=== PATIENT | female | born 1995 | race Caucasian/White ===

== ENCOUNTER 2022-04-29 08:00 | Outpatient (RCR) | payer BC, SELFPAY ==
--- NOTE | 2022-04-29 09:05 | BH.SGPN.GN ---
Behaviors/Verbalizations/Mental Status: []Pt alert and oriented, casually dressed and groomed. Eye contact fair. Motor activity restless. Speech within normal limits. Affect constricted, mood anxious. Thoughts linear, logical, no signs of hallucinations or delusions. Reviewed pt?s symptom tracker, no risk for suicidal ideation, plan, or intent as of 04/29/22 Client Response/Progress/Benefit: [] Pt's first day of IOP tx, attentive and engaged. Pt reports feeling anxious this morning and pt talked about what brought pt to IOP. Pt shared her anxiety is crippling and she feels it constantly. Pt reported she wants to learn how to manage her physical symptoms and negative thinking. Pt receptive to feedback and support from peers which pt appeared to benefit from. Pt will continue IOP tx to prevent decompensation, improve daily functioning, and gain healthy coping skills. Narrative Note: []
--- NOTE | 2022-04-29 10:10 | BH.SGPN.GN ---
Behaviors/Verbalizations/Mental Status: [] Eye contact is good. Motor activity is appropriate. Appearance is casual. Speech is Appropriate. Mood is anxious. Affect is congruent. Thoughts are linear and logical. No evidence of psychosis. Client Response/Progress/Benefit: [] Pt was an active participant in group discussion. Attentive AEB by note taking during psychoeducation on the types cognitive distortions, the CBT triangle, and automatic thoughts. This group was very information heavy as group was introduced to the various cognitive distortions however pt did participate in interactive discussions with peers in which they gave examples of certain cognitive distortions. Benefited from increased awareness and education on cognitive distortions and how they impact mental health. Will continue in IOP to maintain safety, improve functioning, and increase healthy coping skills. Narrative Note: []
--- NOTE | 2022-04-29 11:10 | BH.SGPN.GN ---
Behaviors/Verbalizations/Mental Status: []Eye contact is fair. Motor activity is appropriate. Appearance is casual. Speech is Appropriate. Mood is anxious. Affect is constricted. Thoughts are linear and logical. No evidence of psychosis. Client Response/Progress/Benefit: []Pt was an active participant in the group activity which involved working with peers to answer questions related to psychoeducation on cognitive distortions. Questions were posed in the fashion of Jeopardy and the categories included; Identifying the Cognitive Distortion, Ways to reframe cognitive distortions, Examples of cognitive distortions, and other areas related to cognitive distortions. This was an engaging way to help reinforce psychoeducation and to help client retain the information through examples and practicing. Pt was engaged in the game and with peers on collaborating to determine the answers. Client stated able to connect how distortions have kept her stuck and from trying new things. Benefited from rehearsing ways to challenge/reframe cognitive distortions and by gaining increased insight into examples/definitions of 10 most common cognitive distortions. Will continue in IOP to decrease anxiety, improve confidence, and prevent decompensation.
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
--- NOTE | 2022-05-01 10:00 | BH.SGPN.GN ---
Behaviors/Verbalizations/Mental Status: []Pt alert and oriented, casually dressed and groomed. Eye contact good. Motor activity appropriate. Speech within normal limits. Affect constricted, mood anxious. Thoughts linear, logical, no signs of hallucinations or delusions. Client Response/Progress/Benefit: []Pt responded well to session AEB sharing when prompted and listening attentively to others. Pt participated in group discussion defining boundaries and why having healthy boundaries is important. Pt shared she struggles with setting boundaries because she fears disappointing others. Pt appeared to connect to psychoeducation on types of boundaries, including physical, emotional, and intellectual. Pt listened attentively and nodding throughout discussion in which group members shared personal examples of different types of boundaries. Pt appeared to benefit from increased knowledge of the types of boundaries and increased self-awareness of personal boundaries. Will continue IOP tx prevent decompensation, improve overall functioning, and increase self-confidence. Narrative Note: []
[2022-05-01 10:01] VITALS: BP 122/86; PULSE 63
--- NOTE | 2022-05-01 11:31 | BH.MTP_ITS ---
Master Treatment Plan - Patient Information Program Physician:: Dr. Judie Espinosa Primary Therapist:: Courtney POWERS - Psychiatric Diagnoses Psychiatric Diagnoses:: Major depressive disorder, recurrent, severe without psychosis F 33.2; Obsessive-compulsive disorder; Generalized anxiety disorder; Emetophobia; Tourette's syndrome; Marijuana use disorder Diagnosis Code(s):: F 33.2 - Estimated LOS Estimated LOS (in weeks):: 6 Problem/Goal #1 - Problem/Goal #1 Stated Goal:: Pt will reduce overall frequency and intensity of anxiety, OCD, and ruminations so that daily functioning is not impaired Description of Barriers: Due to pt's anxiety, she has a hard time keeping jobs and has had 10 jobs since she graduated high school. Pt reports avoidance, ruminations, and negative thinking patterns that reinforce anxiety and depression. History of self-harm and reports daily marijuana use. Functional Impact: Pt is a 26-year-old female with a history of depression, OCD, and anxiety. Pt was referred to [facility] by her outpatient providers due to worsening symptoms and suicidal ideations. At admission, pt reports she is scared of everything and she is anxiety 17/02. Pt's symptoms are currently impacting her ability to maintain employment and concentrate. Pt reports feeling worried constantly that she will get fired and that she asks too many questions. Pt also endorsed a depressed mood, worthlessness, lack of motivation, crying spells, and lack of energy. Pt's symptoms are also impacting her relationships and quality of life. Goal Relevant Strengths/Supports: Pt reports her family is support, she has outpatient counseling and psychiatry, and pt has awareness of coping skills. - Objectives Objective #1 Stated Objective: Pt will identify 2-3 anxiety and OCD triggers and 2 coping ski lls to use to manage anxiety as shown by reducing DSM-5 scores for anxiety and OCD. Interventions: Through group and individual sessions, pt will gain awareness of anxiety and OCD triggers and learn numerous techniques to manage anxiety and OCD symptoms. Therapist will teach mindfulness and other calming techniques to manage symptoms and increase distress tolerance skills. Therapist will also help pt utilize mindfulness skills to sit with the uncomfortable to increase confidence in managing triggers. Discharge Criteria: Pt will have met this goal when pt can identify at least 2 triggers and 2 ways to cope with anxiety and show a reduction of DSM-5 scores for anxiety and OCD. Target Date: 06/10/22 Review Date: 05/20/22 Status: open Objective #2 Stated Objective: Pt will improve ability to cope with OCD symptoms and Emetophobia and reduce avoidance by setting 1-2 small exposure goals each week. Interventions: Through group and individual therapy, pt will gain skills on distress tolerance and sitting with the uncomfortable. Therapist will help pt set small, realistic exposure goals each week. Therapist will have pt practice these goals both in session and at home. Therapist will provide psychoeducation on why this is important to reducing anxiety, OCD, and phobias. Therapist will also provide psychoeducation on intrusive thinking and reducing safety behaviors. Discharge Criteria: Pt will have accomplished this goal when pt can report accomplishing at least 1 exposure goal per week and can report reduced avoidance overall. Target Date: 06/10/22 Review Date: 05/20/22 Status: open Problem/Goal #2 - Problem/Goal #2 Stated Goal:: Pt will reduce depressive symptoms, lack of motivation, worthlessness, and passive thoughts of due to major depressive disorder. Description of Barriers: Due to pt's anxiety, she has a hard time keeping jobs and has had 10 jobs since she graduated high school. Pt reports avoidance, ruminations, and negative thinking patterns that reinforce anxiety and depression. History of self-harm and reports daily marijuana use. Functional Impact: Pt is a 26-year-old female with a history of depression, OCD, and anxiety. Pt was referred to [facility] by her outpatient providers due to worsening symptoms and suicidal ideations. At admission, pt reports she is scared of everything and she is anxiety 17/02. Pt's symptoms are currently impacting her ability to maintain employment and concentrate. Pt reports feeling worried constantly that she will get fired and that she asks too many questions. Pt also endorsed a depressed mood, worthlessness, lack of motivation, crying spells, and lack of energy. Pt's symptoms are also impacting her relationships and quality of life. Goal Relevant Strengths/Supports: Pt reports her family is support, she has outpatient counseling and psychiatry, and pt has awareness of coping skills. - Objectives Objective #1 Stated Objective: Pt will learn and utilize 2-3 healthy coping strategies to better manage depressive symptoms and reduce DSM-5 symptoms for depression. Interventions: Through group and individual sessions, therapist will help pt identify triggers and warning signs of depression and emotional dysregulation including emotional, physical, and behavioral changes. Therapist will teach pt various coping skills to manage her symptoms. Therapist will use cognitive restructuring techniques and help pt gain awareness of negative thoughts that reinforce depressive cycles. Therapist will help pt incorporate mindfulness and emotional regulation skills when dealing with difficult situations. Discharge Criteria: Pt will have met this goal when she can report learning and using at least 2 coping skills to manage depressive symptoms and her DSM-5 scores for depression have decreased. Target Date: 06/10/22 Review Date: 05/20/22 Status: open Objective #2 Stated Objective: Pt will identify at least 2-3 negative self-talk messages used to reinforce depression and guilt and replace thoughts with positive, realistic messages Interventions: therapist will help pt identify distorted, negative beliefs about self and replace with more realistic, affirmative messages. Therapist will use CBT to help pt increase insight to the connection between thoughts, emotions, and behaviors. Therapist will encourage pt to practice thought challenging. Discharge Criteria: Pt will have achieved this goal when can verbalize at least 2 negative self-talk messages and effectively replace those thoughts with affirmative, realistic messages. Target Date: 06/10/22 Review Date: 05/20/22 Status: open
--- NOTE | 2022-05-01 11:31 | BH.MDN ---
Multi-Disciplinary Note - Note 30-min Individual Time Started:: 11:10 Date: 05/01/22 Purpose of session/treatment goals addressed:: To gather information on pt's current stressors, symptoms, triggers, and tx goals. Another goal was to build rapport and provide emotional support. Eye Contact:: Good Motor Activity:: Restless Appearance:: Casual Speech:: Appropriate Mood:: Anxious Affect:: Congruent Thoughts:: Linear, Logical, No evidence of hallucinations/delusions noted Staff Interventions:: rapport building, strengths perspective, treatment planning Client Response:: Pt responded well to session, open to meeting with therapist. Pt reports group has gone well so far and pt feels comfortable in the program. Pt shared her anxiety has almost prevented her from coming both days this week, but she was able to use opposite action. Pt is in outpatient treatment through [id number] and finds the services helpful. Pt reports she finds grounding skills helpful when pt zones out and pt is open to incorporating these into sessions. Pt's goal is to get my anxiety under control. Pt has struggled with anxiety most of her life, but it has significantly worsened over the past few months. Pt is unsure what triggered the increase in anxiety. Pt reflected on how her anxiety has led to avoidance, shutting down, and leaving jobs. Risks/Concerns:: Pt denies any active SI, plan, or intent to this therapist. Does admit to having thoughts of not caring if she . Progress Toward Goals/Plan:: Pt's first week of IOP tx and responding well so far. Pt reports feeling stressed about the financial component due to the long drive, but pt can commit to two days a week. Pt endorses severe, crippling anxiety per her report. Pt states her anxiety prevents her from functioning at home and work. Pt reports having 24/7 anxiety with ruminations and fears. Pt will continue IOP tx to prevent decompensation, improve overall functioning, and gain healthy coping skills. Time Stopped:: 11:26
--- NOTE | 2022-05-01 11:31 | BH.PSA ---
Source of Information - Presenting Problems/Circumstances Problems, Referral Source, Mental Status, Client: Pt is a 26-year-old female with a history of depression, OCD, and anxiety. Pt was referred to [facility] by her outpatient providers due to worsening symptoms and suicidal ideations. At admission, pt reports she is scared of everything and she is anxiety 17/02. Pt's symptoms are currently impacting her ability to maintain employment and concentrate. Pt reports feeling worried constantly that she will get fired and that she asks too many questions. Pt also endorsed a depressed mood, worthlessness, lack of motivation, crying spells, and lack of energy. Pt's symptoms are also impacting her relationships and quality of life. Psychiatric Presentation - Psych Issues & Need for Admission Psychiatric Issues:: Major depressive disorder, recurrent, severe without psychosis F 33.2; Obsessive-compulsive disorder; Generalized anxiety disorder; Emetophobia; Tourette's syndrome; Marijuana use disorder Past Psychiatric History - Treatment Hx Treatment History: pt has history of one psychiatric admission in 2019 for suicidal gesture where she pulled a knife on herself in front of her mother and she was admitted to [facility] at that time. No suicide attempts ever. She was diagnosed with Tourette's and OCD in recent years and she states that she clears her throat, hiccups and has some jerking tics at times. Pt did the IOP program at [facility] after her admission in 2019 and found this somewhat helpful. She has a history of cutting on her wrists and legs but did not require any stitches and she has not done this since 2019. Past medications include gabapentin, Cymbalta, BuSpar, Zoloft and Wellbutrin which all gave her significant side effects. Pt currently has outpatient counseling and psychiatry. First hospitalization:: 2018 [facility] Most recent hospitalization:: 2018 [facility] Medication Trials:: Yes ECT Therapy:: No Age of first mental health symptoms: Pt's phobia of vomiting started when pt was 8 years old. Pt reports feeling anxiety since elementary school and it has worsened in recent years. Describe (age, circumstance, etc) any past hospitalizations: See treatment hisotry Current providers for mental health treatment (counselor, psychiatrist, leather case finisher, etc.): Kay Kearns for counseling and Mehnaz Peace for medication management. Both providers are at [place] [id number] Development & Family of Origin - Childhood Significant Childhood Events: Pt describes her childhood as okay due to school being difficult for pt with her phobia of vomiting. Pt shared her parents are loving and denies any abuse in the household growing up. - Family Who currently lives in your home?: Pt lives with her family which includes her parents and her grandmother and who is always live there and they get along pretty well. Describe family composition:: Pt's parents are alive and both in their 50s. Pt is close with her parents, but closer with her mother. Pt has one brother who is two years older and they are sort of close. Pt has never been and has no children. Pt is currently not in a relationship. - Family History Family Hx of Psychiatric or AOD Problems: Pt has a paternal grandmother who is bipolar and had anxiety. Maternal grandmother had depression. No suicides in the family. No substance issues in the family. Ethnicity - Culture Do you identify yourself with any particular cultural, ethnic background, or community?: No - Sexuality Sexual Orientation: Bisexual Mental Status - Memory Recent Memory: Good Remote Memory: Good - Eye Contact Eye Contact: Fair - Speech Speech: Articulate - Thought Process Thought Process: Ruminations Insight: Fair Judgment: Fair Behavior: Anxious - Orientation Orientation: Time, Person, Place, Situation - Appearance Appearance: Appropriate - Mood Mood: Anxious - Affect Affect: Alert Suicide Assessment - Suicidal Ideation Have you ever felt like hurting yourself?: Yes Please explain:: Pt has a history of self-harm via cutting her arms and legs, but pt has not cut since 2019. Pt admits to passive suicidal ideations that occur occasionally, but denies any active SI, plan, or intent. No history of suicide attempts. Were you using ETOH/drugs at the time?: No Suicidal Intentional Rating Scale (SIRS): Current suicidal thoughts/No plan/Contracts for safety - passive suicidal ideations, no active SI, plan, or intent. Physician Notification: If Active suicidal thoughts/Will not contract for safety is checked, contact physician and document in the Physician Notification section below. Violent Behavior/Abuse History - Homicidal Ideation Do you have any homicidal thoughts? If so, explain:: No Is there a known potential victim? If yes, who:: No - Abuse Have you ever been abused?: No - Life Events Are there any other significant life events?: Financial loss, Hardships Describe significant life events: Pt report difficulty maintaining employment which causes negative thinking and financial stress for pt. - Safety Do you ever feel threatened in your home? If yes, describe:: No Substance Use - Substance Substance Use Type: Hallucinogens - Pt has used LSD and mushrooms in the past but only twice., Marijuana, Tobacco - Specific Drugs What specific drugs have you used?: She smokes marijuana 3 times daily with a medical card and first used it at age 22. She smokes cigarettes less than half a pack a day for 5 years. No vaping. No alcohol use. No other drugs except tried mushrooms and LSD twice. No rehab ever Education & Occupational Histo - Education What is your level of education?: Some College - graduated high school and tried college several times but it did not work out. She did obtain a certificate in office management from a college. Do you have any learning disabilities?: No - Occupation List any current or past employment:: She has had over 10 job since high school graduation and her jobs only last 3 to 4 months and then her anxiety increases and she quits the job. Pt is currently employed at [employer], but was given two weeks off of work to focus on her mental health. Service - Service Have you ever been in the ?: No Legal History - Records Have you had any past legal charges?: No Do you have any current legal charges?: No Have you ever been incarcerated? If yes, describe:: No - Court Orders Have you had any past court orders for psychiatric treatment?: No Do you have a present court order for psychiatric treatment?: No Problem Checklist - Current Problem Areas Problem List: Nutritional/Eating pattern changes, Pain management - Fibromyalgia, osteoarthritis, and degenerative disc disease in her back and neck, Depressed mood/sad, Anxiety - with intrusive thinking, phobia of vomiting, and avoidance., Inattention, Impulsivity, Substance use, Sleep problems, Additional psychosocial stressors Discharge Planning Needs - Anticipated Follow-Up [facility] Center (Name/Phone Number):: [phone] Private Therapist/Psychiatrist:: Kay Kearns (therapist) and Mehnaz Peace (psych) Grocery Stock Clerk's Assessment - Client's Needs What are the client's goals?: reduce intensity of anxiety and improve daily functioning. What are the client's strengths?: Pt reports her family is support, she has outpatient counseling and psychiatry, and pt has awareness of coping skills. Diagnoses - Diagnoses Diagnosis #1:: Major depressive disorder, recurrent, severe without psychosis F 33.2 Diagnosis #2:: Obsessive-compulsive disorder Diagnosis #3:: Generalized anxiety disorder Diagnosis #4:: Emetophobia Interpretive Summary - Interpretive Summary Interpretive Summary: pt is a 26-year-old single female with a history of depression, anxiety, OCD and Tourette's disorder who was referred to [facility] by her outpatient psychiatrist for worsening symptoms of depression, anxiety and suicidal ideation. She currently lives with her family which includes her parents and her grandmother and is always live there and they get along pretty well. She has been off work for 2 weeks and she works part-time at [employer] for the past few months only and she does not like her job. Pt reports the fast-paced environment is too anxiety producing. For primary support she has her mother or no one? but pt does talk with her mother. Pt states that she worries all of the time about everything. Pt states that for the last few years she has become increasingly fearful and worried. She has found it more difficult to function at work and at home. Her biggest stress currently is that she has to return to work in 3 days and she is does not know if she will be able to do it. She also has a fear of vomiting that she has had since age 8 which has impacted what she eats and her functioning socially for many years. Pt also has a medical marijuana card and uses medical marijuana 3 times a day. She denies any caffeine use. She endorses feeling depressed and having crying episodes. She endorses hopelessness, worthlessness, guilt and low motivation. Pt thinks very negatively about herself and feels as a rule that ?people won?t like me.? Pt endorses anhedonia and has a low energy level and is tired all of the time. Concentration is decreased. She sleeps about 6 hours a night and she wakes up sometimes during the night and she does take naps during the day. She has a history of self-harm by cutting but she has not done this since 2019. She is a worrier and worries constantly and negatively ruminates. She has not had a panic attack for 3 months and feels the medications have helped lessen these. She has intrusive thoughts about a lot of bad things that could happen to her and others such as her having a seizure and worries about these thoughts and has some checking rituals. She denies eating disorder, trauma or PTSD or seizure or head trauma. She admits to passive thoughts that she would not care if she . She admits to passive suicidal ideation which occurs 2-3 times a week but she denies any active suicidal ideation and denies plan for suicide. She also denies homicidal ideation, hallucinations or delusions or martín. Denies abuse during childhood. Family history of anxiety, depression, and bipolar disorder. Pt denies family history of substance abuse. Treatment Plan Recommendations - Recommendations Guidelines: Special needs identified to be included in the development of an individualized treatment plan regarding past psychiatric history and treatment, developmental events, family relationships/events/culture, past and/or current educational, occupational, social, and residential experience, and legal status. Recommendations:: Pt will start IOP as the structure, support, education and group therapy will hopefully prevent worsening of pt's symptoms which could require hospitalization. She felt safe during the interview and if it anytime she does not feel safe she will let us know or go to the emergency room. The risk, options, possible complications and side effects of the medications were discussed between pt and Dr. Espinosa and pt understands and accepts these. Laboratory had not been done since a year ago and the pt agreed to have a TSH, vitamin D and CBC checked (heavy menstrual periods for CBC). She will continue to follow-up with her outpatient providers. Pt can benefit from ERP therapy for her emetaphobia, OCD, and severe anxiety. Pt is receptive to learning about intrusive thinking to help manage her OCD.
--- NOTE | 2022-05-01 12:57 | PCM.BH.PSYEV ---
Psychiatric Evaluation Initial Evaluation Initial Evaluation: History of Present Illness: [] The patient is a 26-year-old single female with a history of depression, anxiety, OCD and Tourette's disorder who was referred to the [facility] behavioral health IOP program by her outpatient psychiatrist for worsening symptoms of depression, anxiety and suicidal ideation. She currently lives with her family which includes her parents and her grandmother and is always live there and they get along pretty well. 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 For primary support she has her mother or no one. The patient states that she worries all of the time about everything. The patient states that for the last few years she has become increasingly fearful and worried. She has found it more difficult to function at work and at home. Her biggest stress currently is that she has to return to work in 3 days and she is does not know if she will be able to do it. She also has a fear of vomiting that she has had since age 8 which has impacted what she eats and her functioning socially for many years. The patient also has a medical marijuana card and uses medical marijuana 3 times a day. She denies any caffeine use. She endorses feeling depressed and having crying episodes. She endorses hopelessness, worthlessness, guilt and low motivation. She is anhedonic and has a low energy level and is tired all of the time. Concentration is decreased. She sleeps about 6 hours a night and she wakes up sometimes during the night but she does take naps during the day. She has a history of self-harm by cutting but she has not done this since 2019. She is a worrier and worries constantly and negatively ruminates. She has not had a panic attack since 3 months ago and feels the medications have helped lessen these. She has intrusive thoughts about a lot of bad things that could happen to her and others such as her having a seizure and worries about these thoughts and has some checking rituals. She denies eating disorder, trauma or PTSD or seizure or head trauma. She admits to passive thoughts that she would not care if she . She admits to passive suicidal ideation which occurs 2-3 times a week but she denies any active suicidal ideation and denies plan for suicide. She also denies homicidal ideation, hallucinations or delusions or martín. She does feel that people will not like her and and do not like her as a rule. Current Psychiatric Medications: [] Abilify 2 mg p.o. daily (x6 months, had side effects on 5 mg); Lexapro 20 mg p.o. daily (x6 months). Past Psychiatric History: [] 1 psychiatric admission in 2019 for suicidal gesture where she pulled a knife in front of her mother and she was admitted to [facility] at that time. No suicide attempts ever. She was diagnosed with Tourette's and OCD in recent years and she states that she clears her throat, hiccups and has some jerking tics at times. The patient did the IOP program at [facility] after her admission in 2019 and found this somewhat helpful. She has a history of cutting on her wrists and legs but did not require any stitches and she has not done this since 2019. Past medications include gabapentin, Cymbalta, BuSpar, Zoloft and Wellbutrin which all gave her significant side effects. Substance Use History: [] She smokes marijuana 3 times daily with a medical card and first used it at age 22. She smokes cigarettes less than half a pack a day for 5 years. No vaping. No alcohol use. No other drugs except tried mushrooms and LSD twice. No rehab ever. Allergies: [] No known allergies Medications: [] control pills, famotidine, allopurinol and Zyrtec as needed for hayfever Past Medical History: [] Fibromyalgia, osteoarthritis, degenerative disc disease in her back and neck, gout, GERD. No surgeries. 0 para 0 female with regular menstrual periods who is on control pills. Family Psychiatric History: [] Mother and father both in their 50s. She has a paternal grandmother who is bipolar and had anxiety. Maternal grandmother had depression. No suicides in the family. No substance issues in the family. Personal/Social History: [] She was born and raised in [place] and describes her childhood as okay. School was hard for the patient due to her phobia of vomiting which occurred around age 8 and she feels that for this reason she never had friends at school even as she advanced into high school. She was not in any special classes at school and was a B student. She had 1 brother 2 years older than her and they are sort of close. She denies any verbal, physical or sexual abuse growing up. She describes her parents as loving. She graduated high school and tried college several times but it did not work out. She did obtain a certificate in office management from a college. She has had over 10 job since high school graduation and her jobs only last 3 to 4 months and then her anxiety increases and she quits the job. She has had 1 serious boyfriend for 1 year and that was in high school and no boyfriend since. She describes her self as bisexual. Legal History: [] No arrests. 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 No DUIs. Review of Systems: [] Patient has symptoms of chronic pain and is sometimes achy all over due to her fibromyalgia and osteoarthritis arthritis and disc disease. She has some GI symptoms like reflux from her GERD. Review of systems is otherwise negative except as noted in present illness. Vital Signs: [] Vital signs and exam are reviewed and updated in the notes and in the nurses notes and the patient is deemed able to medically participate in the IOP program in behavioral health at [facility]. Mental Status Examination: [] The patient is a 26-year-old female who appears normal for stated age and is casually dressed and groomed with good hygiene. She is seen wearing glasses. She has no psychomotor agitation or retardation. She did have a few hiccups which recurred at times during the interview but no other signs of Tourette's. No psychomotor agitation or retardation. Eye contact is good and speech is normal rate and rhythm and fluent with no pressure. She is ambulatory with a normal gait. Mood is depressed. Affect is constricted. Thought process is goal-directed and organized. Thought content: There is evidence of passive thoughts of and passive suicidal ideation. There is no evidence of active suicidal ideation, plan for suicide, homicidal ideation, hallucinations or delusions. Reality testing is intact. Intelligence is average or above. Judgment is intact. Insight is limited. Impulsivity is moderate. Diagnoses: [] 1. Major depressive disorder, recurrent, severe without psychosis 2. Obsessive-compulsive disorder 3. Generalized anxiety disorder 4. Emetophobia 5. Tourette's syndrome 6. Marijuana use disorder 7. Primary support and work issues Plan: [] Patient will start the IOP program at [facility] as the structure, support, education and group therapy will hopefully prevent worsening of the patient's symptoms which could require hospitalization. She felt safe during the interview and if it anytime she does not feel safe she will let us know or go to the emergency room. The risk, options, possible complications and side effects of the medications were discussed with the patient and she understands and accepts these. Laboratory had not been done since a year ago and the patient agreed to have a TSH, vitamin D and CBC checked (heavy menstrual periods for CBC). Patient was offered to increase her Lexapro to 30 mg to help with her severe worrying and her depression and she stated she wanted to wait. But then later she told her therapist she did want to increase the Lexapro about an hour later so prescription was sent in for Lexapro 30 mg p.o. daily. This was a 20 mg tablet she is to take 1 and half tablets p.o. daily. She will continue to follow-up with her outpatient providers and I will see the patient in follow-up in 2 weeks. We will not increase the Abilify as she had side effects on 5 mg of Abilify.
--- NOTE | 2022-05-01 13:10 | BH.DR.ITP ---
Initial Treatment Plan Patient Information Visit Information: ADMISSION DATE: EXPECTED LOS: 4-6 weeks Problems/Symptoms Problem #1:: Depression Symptom:: Sadness, hopelessness, worthlessness, anhedonia, biological disruption of sleep, decreased concentration, guilt, fatigue, passive thoughts of , passive suicidal ideation Problem #2:: Anxiety Symptom:: Worry, rumination, intrusive thoughts and checking rituals
--- NOTE | 2022-05-02 09:00 | BH.SGPN.GN ---
Behaviors/Verbalizations/Mental Status: []Eye contact fair, casually dressed, motor activity appropriate, speech normal rate and tone, mood anxious, congruent affect, thoughts linear and intact, no evidence of delusions or hallucinations. Reviewed pt's symptom tracker, no indication of suicidal ideation or intent. Client Response/Progress/Benefit: [] Client respond well to session as evidenced by her listening attentively to others and openly sharing thoughts and feelings. Client initially struggled with identifying mental health positives. Eventually reported mental health win as getting laundry done yesterday. Additional positive was showing up to IOP today despite wanting to stay in bed. Reported mental health stressor as having a blah day yesterday. Client seemed to benefit from support from peers. Client to continue IOP to stabilize mood, improve emotion regulation, and prevent decompensation.
--- NOTE | 2022-05-02 10:10 | BH.SGPN.GN ---
Behaviors/Verbalizations/Mental Status: []Pt alert and oriented, casually dressed and groomed. Eye contact good. Motor activity appropriate. Speech within normal limits. Affect congruent, mood anxious. Thoughts linear, logical, no signs of hallucinations or delusions. Client Response/Progress/Benefit: []Pt was an active participant AEB contributing to discussion, taking notes, and engaging in group activity. Connected with the topic of pitfalls and listened to group discussion on barriers that prevent from choosing a healthier path to mental wellness. Group worked together to identify examples of personal pitfalls which included; resentment/anger, shutting down, low motivation, making excuses, denial, distortions, and unhealthy coping. Pt identified not asking for help, distortions, negative self-talk, and not setting boundaries as personal pitfalls that have inhibited progress in the past.? Pt benefited from group as pt learned to better identify potential barriers to improving mental health symptoms. Pt will continue IOP tx to prevent decompensation, reduce avoidance, and improve daily functioning. ? Narrative Note: []
--- NOTE | 2022-05-02 11:12 | BH.SGPN.GN ---
Behaviors/Verbalizations/Mental Status: []Pt alert and oriented, casually dressed and groomed. Eye contact good. Motor activity appropriate. Speech within normal limits. Affect congruent, mood anxious and depressed. Thoughts linear, logical, no signs of hallucinations or delusions. Client Response/Progress/Benefit: []Pt receptive of session, engaged throughout AEB pt actively listening and contributing to discussion, as well as taking notes.? Pt participated in the experiential activity and did well to communicate ideas with peers and manage emotions. Pt and group processed how the emotions and perspective of the group impacted the activity. Pt reported her own anxiety made it difficult to believe in the groups ability to achieve their goal at times. Group worked together to identify different coping skills to help manage pitfalls. Pt identified pitfalls they struggle with such as negative self-talk and poor boundaries. Pt plans to work on the pitfall of improving use of poor boundaries by beginning to practice saying small ?no?s? to things. Benefited from identifying personal pitfalls and strategies to overcome these pitfalls. Will continue IOP tx to prevent decompensation, improve anxiety management, and increase the use of healthy coping skills. Narrative Note: []
--- NOTE | 2022-05-07 09:00 | BH.SGPN.GN ---
Behaviors/Verbalizations/Mental Status: [] Eye contact is poor. Motor activity is appropriate. Appearance is casual. Speech is Appropriate. Mood is depressed. Affect is flat. Thoughts are linear and logical. No evidence of psychosis. Reviewed daily check in sheet and no reports of SI. Client Response/Progress/Benefit: [] pt participated when prompted. Attentive. Daily symptom tracker notes 5/5 for anxiety and 4/5 for depression. He only mental health win was ?I survived work?. She shared her mental health struggles and her history of quitting jobs due to being overwhelmed. She believes that she is falling behind and that she will soon be fired. ?I?m not hitting my goals?. Perception of failing at work has exacerbated her anxiety and depression. Notes increased isolation. Emotion for today is ?distant?. Group provided support, encouragement, and feedback which was beneficial. Will continue in IOP to maintain safety, prevent decompensation, and increase healthy coping Narrative Note: []
--- NOTE | 2022-05-09 08:54 | BH.MDN_ITS ---
Multi-Disciplinary Note - Note 30-min Individual Time Started:: 11:33 Date: 05/09/22 Purpose of session/treatment goals addressed:: To work on goal #2 of pt's treatment plan. Another goal was to discuss anxiety maintenance cycles. Rehearsed grounding techniques. Eye Contact:: Good Motor Activity:: Appropriate Appearance:: Casual Speech:: Appropriate Mood:: Anxious Affect:: Congruent Thoughts:: Linear, Logical, No evidence of hallucinations/delusions noted Staff Interventions:: motivational interviewing, psychoeducation on: - anxiety maintenance cycles, strengths perspective - reviewed 5-senses grounding technique, taught coping skills Client Response:: Pt responded well to session, open to meeting with therapist. Pt reports enjoying IOP groups so far and finds the group setting to be helpful and supportive. Pt shared she has been struggling with chronic anxiety which was why she left group early on Friday. Shared she often uses avoidance or distraction when feeling anxious. Connected well with psychoeducation on m aintenance cycles and able to identify her own anxiety maintenance cycle. Shared an example of feeling overwhelmed by the amount of things she needs to do, trying to write everything down, having thoughts of ?this is too much. I can?t handle everything?, and then not completing any of the activities on her to do list. Notes that when feeling overwhelmed she often shuts down and does not complete anything. Pt receptive of taking three things from her ?to-do list? and making a separate shorter list each day to prevent from feeling overwhelmed. Additionally, pt shared wanting to learn new grounding techniques as she has done these in previous therapy sessions and found them helpful. Reports she has never practiced grounding outside the therapeutic environment but is receptive of beginning to do so to better familiarize herself with the skills. Pt and therapist reviewed and rehearsed the ?5-senses? grounding strategy. Homework for pt to practice this skill at home. Risks/Concerns:: Pt denies any suicidal ideations, plan, or intent as of 05/09/22. Pt denies any HI. Progress Toward Goals/Plan:: Pt responding well to tx, reports connecting with groups and fellow participants which has been helpful. Pt reports ongoing difficulties in managing her anxiety, specifically feelings of being overwhelmed. Appears to have good insight into this and able to recognize personal anxiety maintenance cycle. Anxiety continues to manifest in psychosomatic sx as well. Pt is progressing AEB her self-report of improved mood overall, however, pt continues to struggle with confidence and in the moment coping. Pt will continue IOP tx to promote stress management skills, reduce intrusive thinking and decrease anxiety. Time Stopped:: 12:05
--- NOTE | 2022-05-09 09:05 | BH.SGPN.GN ---
Behaviors/Verbalizations/Mental Status: [] Eye contact is good. Motor activity is appropriate. Appearance is casual. Speech is Appropriate. Mood is depressed. Affect is flat. Thoughts are linear and logical. No evidence of psychosis. Reviewed daily check in sheet and no reports of SI. Client Response/Progress/Benefit: [] pt was an active participant in group discussions. Attentive. Provided appropriate feedback. Daily symptom tracker notes 4/5 for depression and 5/5 for anxiety. Emotion for today is ?uncomfortable?. Mental health was ?cleaning my room and walking the dog?. Shared why these are beneficial to her mental health. Reports that her energy level is low today. She continues to ruminate on her struggles at work which triggers numerous negative thoughts, hopelessness, and worthlessness. She has spoken to support outside of IOP and has decided that she needs to find employment in an environment that is not busy and hectic. Benefited from group support, encouragement, and feedback. Will continue in IOP to maintain safety, increase healthy coping, and prevent decompensation. Narrative Note: []
--- NOTE | 2022-05-09 10:05 | BH.SGPN.GN ---
Behaviors/Verbalizations/Mental Status: [] Client alert and oriented, casually dressed and groomed. Eye contact good. Motor activity appropriate. Speech within normal limits. Affect congruent, mood euthymic. Thoughts linear, logical, no signs of hallucinations or delusions. Client Response/Progress/Benefit: [] Client was an active participant in group discussions and activity. Attentive during psychoeducation. Client along with peers were able to identify several negatives on the picture given to the group. Client and peers also identified positives in the picture and made the connect that finding positives is much more difficult. Client shared how it made her feel guilty picking out the negatives. Interactive discussion on the definition of perspective, how perspective is formed, and why perspective is important in treatment. Client along with peers also identified that perspective can either motivate and encourage treatment or be a barrier to receiving help. Client along with group members came up with benefits of having a hopeful perspective for their mental health, which included feeling more encouraged, feeling less depressed, and increased motivation. Will continue in IOP to increase self-esteem, increase overall functioning and increase self-confidence. Narrative Note: []
--- NOTE | 2022-05-14 09:05 | BH.SGPN.GN ---
Behaviors/Verbalizations/Mental Status: [] Eye contact is good. Motor activity is appropriate. Appearance is casual. Speech is Appropriate. Mood is depressed. Affect is flat. Thoughts are linear and logical. No evidence of psychosis. Reviewed daily check in sheet and pt reports 1/5 for suicidal ideations and 0/5 for intent. Client Response/Progress/Benefit: [] Pt was an active participant in group discussions. Attentive. Daily symptom tracker notes 5/5 for anxiety and 4/5 for depression/irritability.Mental [employer] win was visiting with her grandmother however this ?drained my social battery?. She explained this to the group. Views socialization as being emotionally and physically draining. Discussed how this perspective impacts her mental health and keeps her from following through with plans. She is even contemplating cancelling plans this weekend. Group provided feedback and encouraged her to set limits on her social interactions, so she does not feel overwhelmed (2 hours lunch vs spending the day with someone). If drained can leave if OK and benefiting can stay. Will continue in IOP to maintain safety, prevent decompensation, and increase healthy coping. Narrative Note: []
--- NOTE | 2022-05-14 10:10 | BH.SGPN.GN ---
Behaviors/Verbalizations/Mental Status: Client alert and oriented, casually dressed and groomed. Eye contact fair to good. Motor activity appropriate. Speech within normal limits. Affect congruent, mood depressed and anxious. Thoughts linear, logical, no signs of hallucinations or delusions. [] Client Response/Progress/Benefit: [] Client receptive to session AEB listening and contributing throughout discussion, as well as taking notes. Worked with group to brainstorm the positive and negative aspects of stress on physical and mental health. Group did well to identify the benefits of stress as well as the impact of distress on performance and mental health. Client identified their personal top stressors as: her living situation, job search, and physical health. Client reports when the stress overflows client reacts with isolating, shutting down, and ruminating. Client seemed to benefit from increased awareness of current stressors and impact stress has on mental health. Recommended to continue IOP tx to stabilize moods, reduce anxiety, and prevent decompensation. Narrative Note: []
--- NOTE | 2022-05-14 12:03 | BH.MDN_ITS ---
Multi-Disciplinary Note - Note 45-min Individual Time Started:: 11:15 Date: 05/14/22 Purpose of session/treatment goals addressed:: To work on goal #1 of pt's treatment plan. Eye Contact:: Good Motor Activity:: Appropriate Appearance:: Casual Speech:: Soft Mood:: Anxious, Dysthymic Affect:: Constricted Thoughts:: Other - ruminations, No evidence of hallucinations/delusions noted Staff Interventions:: psychoeducation on: - Intrusive thinking. Read through and practiced exercises in chapter 1 of the overcoming unwanted intrusive thoughts book., mindfulness skills - practiced progressive muscle relaxation., rapport building, strengths perspective, taught coping skills, other - gave pt homework to read chapter 3 of the overcoming unwanted intrusive thoughts book. Client Response:: Pt responded well to session, open to meeting with therapist. Pt reports she has been struggling lately and shared about having passive SI. Pt stated there is no intent or plan, but she feels very bothered by the thoughts. Pt is worried she will have to go to the hospital. Discussed how if her thoughts get worse she should go to the ER. Pt continues to feel anxious most of the day and is unable to function at home. Pt had to quit her job because of her anxiety, but pt feels like this was a good choice. Therapist led pt in a progressive muscle relaxation technique which helped pt regulate anxiety. Pt receptive to learning about intrusive thinking and after reading the handout provided, pt shared it's scary how much this is me. Pt gave examples of intrusive thoughts she has had such as what if I hurt an animal, what if my dog has a seizure, etc. Discussed how intrusive thoughts form and get stuck. Pt also gained awareness of how these thoughts impact her functioning, emotions, and physical symptoms. Pt shared she often feels shame, disgust, and feels provoked to act when she has these intrusive thoughts. Pt's thoughts are eco- dystonic and make pt question herself. Pt participated in an exercise which had pt practice forming a stuck thought which helped pt see how easy it is to get a thought stuck. Pt receptive to reading the myths about facts on intrusive thoughts for homework. Risks/Concerns:: Pt reports she is having fleeting, passive suicidal ideations that are easy to control. Pt reports her fear of dying is what is keeping her from acting on these thoughts. Denies any active SI, plan, or intent. Reports ability to maintain safety. Progress Toward Goals/Plan:: Pt is making mild progress as pt is consistent and engaged, but her symptoms and stressors are ongoing. Pt quit her job at [email or web address] due to it being too stressful of an environment for her. Pt continues to struggle with her daily functioning and feels anxious constantly. Pt connected with the psychoeducation on intrusive thinking and shared how much her intrusive thoughts interfere with her daily functioning. Pt will continue IOP tx to prevent decompensation, increase distress tolerance skills, and improve daily functioning. Time Stopped:: 11:55
--- NOTE | 2022-05-16 09:00 | BH.SGPN.GN ---
Behaviors/Verbalizations/Mental Status: [] Pt eye contact fair, casually dressed, motor activity appropriate, speech normal rate and tone, mood anxious and dysthymic, constricted affect, thoughts linear and intact, no evidence of delusions or hallucinations. Per patient symptom tracker no indication of suicidal ideation, plan, or intent. Client Response/Progress/Benefit: []Pt responded well to session AEB listening attentively to others and sharing thoughts and feelings. Client reported on self positive as pushing herself to drive this morning in order to come to IOP. Client said additional months of positive as using opposite action yesterday to make herself go to her friend's house. Client stated she is happy she forced herself to go because she had a really enjoyed herself. Client reported current stressor as trying to find a new job. Seemed to benefit from support from peers. Client to continue IOP to increase consistent utilization of healthy coping skills, challenge negative thoughts, and prevent decompensation. Narrative Note: []
--- NOTE | 2022-05-16 10:05 | BH.SGPN.GN ---
Behaviors/Verbalizations/Mental Status: []Pt alert and oriented, casually dressed and groomed. Eye contact good. Motor activity appropriate. Speech within normal limits. Affect congruent, mood anxious. Thoughts linear, logical, no signs of hallucinations or delusions. Client Response/Progress/Benefit: []Pt participated during the group discussion, providing input and remaining attentive during psychoeducation. Participated in experiential activity. Pt contributed during interactive discussion on the consequences of unhealthy expression of emotions.? Worked with group to identify several consequences which included pushing people away, ?exploding,? and not getting needs met. Contributing during interactive discussion on common potholes to effectively communicating. Pt identified personal ones such as shutting down and not effectively listening. Pt was able to relate and make connections between the experiential activity and the overall topic, reported experiencing anxiety and excitement, but managing it well thought positive self-talk and thought challenging. Benefited from increased awareness of how stress and emotions can impact one's ability to communicate. Will continue in IOP to manage sx of anxiety, continue to improve overall functioning, and further improve independent decision making. Narrative Note: []
--- NOTE | 2022-05-16 11:05 | BH.SGPN.GN ---
Behaviors/Verbalizations/Mental Status: []Pt alert and oriented, casually dressed and groomed. Eye contact good. Motor activity appropriate. Speech within normal limits. Affect congruent, mood anxious. Thoughts linear, logical, no signs of hallucinations or delusions. Client Response/Progress/Benefit: []Pt engaged in session AEB pt listening attentively to peers and providing input. Attentive during psychoeducation on 4 zones of regulation. Pt able to identify feelings and behaviors for each zone.? Pt identified coping skills one can use to support self in each zone. Pt stated belief that pt is in the yellow zone today, but pt shared ?that?s my baseline, I?m always anxious. Pt reports breathing and gathering her thoughts will help pt get out of the yellow zone today. Benefited from increased education on zones of regulation or stages of alertness for emotions and healthy coping skills to use for each zone. Pt will continue IOP tx to prevent decompensation, improve daily functioning, and improve ability to manage intrusive thinking. ? Narrative Note: []
--- NOTE | 2022-05-21 09:00 | BH.SGPN.GN ---
Behaviors/Verbalizations/Mental Status: [] Eye contact is good. Motor activity is appropriate. Appearance is casual. Speech is Appropriate. Mood is depressed. Affect is flat. Thoughts are linear and logical. No evidence of psychosis. Reviewed daily check in sheet and pt reports 1/5 for suicial ideations and 0/5 for intent. Client Response/Progress/Benefit: [] Pt participated at times during the group discussion. Attentive. Daily symptom tracker notes 4/5 for anxiety and 3/5 for depression. ?I don?t think I have any mental health wins?. Shared she is struggling with motivation, low energy, and lack of desire to ?do anything?. Spend time with friend over the weekend ?but that was a disaster?. Processed this with the group and got feedback on ways to set boundaries as well as strategies to find more friends locally. Benefited from group support, encouragement, and feedback. Will continue in IOP to maintain safety, increase healthy coping, and prevent decompensation. Narrative Note: []
--- NOTE | 2022-05-21 10:10 | BH.SGPN.GN ---
Behaviors/Verbalizations/Mental Status: []Pt alert and oriented. Casually dressed and groomed. Eye contact good. Motor activity appropriate. Speech within normal limits. Affect constricted, mood anxious. Thoughts linear, logical, no signs of hallucinations or delusions. Client Response/Progress/Benefit: []Pt was an active participant in group discussions. Attentive during psychoeducation. Participated with peers in experiential activity. Pt participated in an interactive discussion with peers in which they worked together to define what coping skills are. Indicates that she, like peers, struggle with replacing unhealthy coping skills. Group then identified unhealthy coping skills which included; avoidance, distraction, taking on others problems, and shutting down. Pt stated unhealthy coping skills are easier to use and it is ?what we learn.? Benefited from increased awareness and education the benefits of have both internal and external coping skills. Will continue in IOP to prevent decompensation, reduce avoidance, and improve overall functioning. Narrative Note: []
--- NOTE | 2022-05-21 11:16 | BH.TPR ---
Treatment Plan Review Date of Admission:: 04/29/22 Date of Treatment Plan Review:: 05/21/22 Admitting Diagnoses:: Major depressive disorder, recurrent, severe without psychosis F 33.2; Obsessive-compulsive disorder; Generalized anxiety disorder; Emetophobia; Tourette's syndrome; Marijuana use disorder Current Diagnoses:: Major depressive disorder, recurrent, severe without psychosis F 33.2; Obsessive-compulsive disorder; Generalized anxiety disorder; Emetophobia; Tourette's syndrome; Marijuana use disorder Patient's Response to Treatment:: Pt has responded well to treatment AEB pt consistently attending IOP sessions and self-report of benefitting from IOP tx. Pt's overall DSM-5 scores have reduced by 8% since admission. Pt contributes well during individual sessions and takes notes throughout group sessions. Pt attempts to use coping skills outside of IOP and is a good support to peers. Status of Current Problems and Symptoms: Pt's symptoms and stressors are ongoing, but the intensity of her symptoms are reducing. Pt continues to report depressive symptoms such as lack of motivation, negative thinking, and lack of energy. Pt is still anxious most days, but she reports less avoidance and less panic. Pt's stressors include trying to find a job, feeling overwhelmed, and cognitive difficulties from anxiety. Problem #1 Problem Name:: anxiety, OCD, and ruminations Status of Goals:: Objective 1-in progress. Pt?s scores for anxiety decreased by 25% since admission, but pt?s scores for OCD remain the same. Pt has been practicing grounding stills during sessions and is more aware of her anxiety cycles. Objective 2- in progress. Pt coming to IOP each week has been exposure for pt and she has not cancelled which is progress. Pt is also working on skills from the overcoming unwanted intrusive thoughts book to help with her OCD. Team Recommendations:: Therapist spoke with pt's outpatient therapist and it was recommended that pt either take a break from working or find a slow-paced job. Treatment team recommends pt continue working on this goal to further decrease anxiety, reduce intrusive thoughts, and improve distress tolerance when faced with stress. Problem #2 Problem Name:: depressive sx, lack of motivation, worthlessness, and thoughts of Status of Goals:: Objective 1- in progress. Pt?s depression has decreased by 25% since admission per the DSM-5. However, pt continues to report lack of motivation, low energy, and negative thinking. Objective 2-in progress. Pt reports increased awareness of her distorted thoughts and negative self-talk and pt is learning how to incorporate self-compassion.
--- NOTE | 2022-05-23 14:10 | BH.MDN_ITS ---
Multi-Disciplinary Note - Note 45-min Individual Time Started:: 11:20 Date: 05/23/22 Purpose of session/treatment goals addressed:: To work on goal #2 of pt's treatment plan. Another goal was to review homework. Eye Contact:: Good Motor Activity:: Restless Appearance:: Casual Speech:: Appropriate Mood:: Anxious, Depressed Affect:: Constricted Thoughts:: Other - distracted, No evidence of hallucinations/delusions noted Staff Interventions:: psychoeducation on: - myths about intrusive thoughts, self-compassion, and maintenance cycles., mindfulness skills, strengths perspective, goal setting Client Response:: Pt responded well to session, open to meeting with therapist. Pt shared something is off with me today which has been making it hard for pt to concentrate. Pt receptive to emotional validation and self-compassion. Pt learned about using self-compassion to combat unrealistic or unfair expectations of self and negative thinking. Pt benefited from this as pt continues to search for employment which triggers negative self-talk and anxiety. Pt learned about the components of self-compassion and practiced cognitive restructuring with this skill. Pt shared she connected with the homework from last session which w as the myths about thoughts, specially that thoughts do not determine character. Pt shared learning about this reduced anxiety. Pt practiced a grounding skills before leaving session. Risks/Concerns:: Pt reports having thoughts of recently, but pt denies any plan or intent. Pt reports her fear of keeps pt from acting on these thoughts. Progress Toward Goals/Plan:: Pt's DSM-5 scores have decreased by 8% overall with depression and anxiety decreasing by 25% since admission. Pt is consistent and engaged during sessions, but pt is only able to attend two days a week due to the drive. Pt continues to endorse low self-esteem and negative thinking, lack of motivation, ruminations, obsessions, avoidance, and lack of energy. Pt has applied for a new job which is progress, but work continues to be a major stressor. Pt will continue IOP tx to prevent decompensation, increase distress tolerance skills, and improve daily functioning. Time Stopped:: 12:00
== END 2022-05-27 23:59 ==
LOC: BHIOP 08:00
PROVIDERS: Referring Provider Psychiatry & Neurology Psychiatry; Visit Provider Psychiatry & Neurology Psychiatry
DX: F33.2 Major depressive disorder, recurrent severe without psychotic features (principal); F42.9 Obsessive-compulsive disorder, unspecified; F41.1 Generalized anxiety disorder; F95.2 Tourette's disorder; F12.90 Cannabis use, unspecified, uncomplicated
CPT/HCPCS: S9480; 90832; 90834; 90853

== ENCOUNTER → 2022-05-01 | Outpatient (CLI) | payer BC, SELFPAY ==
[2022-05-01 13:17] LABS: Absolute Lymphocyte Count 2.19 X10^3/uL (0.83-4.51); Absolute Neutrophil Count 6.7 X10^3/uL (2.0-7.7); Basophil# 0.03 X10^3/uL; Basophil% 0.3 % (0-1); Eosinophil# 0.45 X10^3/uL; Eosinophils% 4.6 % (0-5); Hematocrit 40.1 % (37-47); Hemoglobin 13.2 g/dL (12.0-15.0); Lymphocyte # 2.19 X10^3/ul (0.83-4.51); Lymphocyte % 22.2 % (19-41); Mean Corp Hgb Conc 32.9 g/dL (32-36); Mean Corpuscular Hgb 27.9 pg (27.0-32.0); Mean Corpuscular Volume 84.8 fL (81-99); Mean Platelet Vol. 10.8 fl (6.2-12.0); Monocyte# 0.48 X10^3/uL; Monocyte% 4.9 % (0-10); NRBC Flagged by Analyzer 0 % (0-5); Neutrophil # 6.66 X10^3/uL (2.7-7.7); Neutrophil % 67.5 % (47-70); Platelet Count 230 K/mm3 (150-450); RBC Distribution Width CV 13.7 % (11.6-14.6); RBC Distribution Width SD 42.8 fl (35.1-43.9); Red Blood Count 4.73 M/mm3 (4.2-5.4); White Blood Count 9.9 K/mm3 (4.4-11.0)
[2022-05-01 14:04] LABS: Vitamin D,25 Hydroxy 27.3 ng/mL
[2022-05-01 14:10] LABS: Thyroid Stim Hormone (TSH) 1.53 uIU/mL (0.358-3.74)
== END | disposition home or self-care (01) ==
PROVIDERS: Referring Provider Psychiatry & Neurology Psychiatry; Visit Provider Psychiatry & Neurology Psychiatry
DX: E55.9 Vitamin D deficiency, unspecified (principal)
CPT/HCPCS: 36415; 82306; 84443; 85025

== ENCOUNTER 2022-05-28 08:09 | Outpatient (RCR) | payer BC, SELFPAY ==
[2022-05-28 00:40] VITALS: BP 122/86; PULSE 63
--- NOTE | 2022-05-29 09:00 | BH.SGPN.GN ---
Behaviors/Verbalizations/Mental Status: []Pt eye contact good, casually dressed, motor activity appropriate, speech normal rate and tone, mood euthymic and slightly anxious, constricted affect, thoughts linear and intact, no evidence of delusions or hallucinations. Client Response/Progress/Benefit: []Pt responded well to session AEB pt listening attentively to others and sharing thoughts and feelings with group. Pt reported mental health positive as having a lot of fun at her brother's Halloween constitution party over the weekend. Pt stated she got to reconnect with her childhood friends she hasn't seen in 10 years. Pt reported additional mental health positive as setting boundary with one of her friends that pt doesn't want to go over to friends house anymore due to feeling uncomfortable when pt is there. Pt stated her friend and friends boyfriend constantly fight when pt was over which made her anxious. Pt stated her friend responded well to the boundary and pt reported feeling brave for setting a boundary. Pt reported current stressor as still trying to find a job and money issues. Pt to continue IOP to continue use of healthy coping skills, challenge negative thinking and prevent decompensation. Narrative Note: []
--- NOTE | 2022-05-29 10:08 | BH.SGPN.GN ---
Behaviors/Verbalizations/Mental Status: []Client alert and oriented, casually dressed and groomed. Eye contact fair to good. Motor activity appropriate. Speech within normal limits. Affect congruent, mood anxious and agitated. Thoughts linear, logical, no signs of hallucinations or delusions. Client Response/Progress/Benefit: []Client responded well to session AEB taking notes, providing input, and listening attentively to others. Client provided examples of benefits of having social support. Client also contributed throughout group discussion regarding the different kinds of supports in our safety net and the things that weaken or prevent us from using our supports. Client identified that fear of being a burden can become something that may weaken one?s support net. Client participated in experiential activity illustrating the importance of having multiple social supports. Client provided supportive feedback and problem solving throughout group activity. Client attentive and contributing during group processing of the activity. Client appeared to benefit from increased knowledge of the benefits of social support and greater self-awareness. Will continue IOP treatment to enhance coping skill repertoire, further improve stress management, and improve overall functioning. Narrative Note: []
--- NOTE | 2022-05-29 11:05 | BH.SGPN.GN ---
Behaviors/Verbalizations/Mental Status: []Pt alert and oriented, casually dressed and groomed. Eye contact good. Motor activity appropriate. Speech within normal limits. Affect congruent, mood anxious. Thoughts linear, logical, no signs of hallucinations or delusions. Client Response/Progress/Benefit: []Pt was an active participant throughout AEB contributing to discussion, providing personal examples, and taking notes.? Pt provided input during discussion on the types of support our supports can provide. Pt able to identify current support system and barriers that get in the way of using supports by drawing out their own support net. Personal barriers included intrusive thinking and ?fake? friends. Pt reported after identifying what type of supports they receive; they gained awareness that they could benefit from more tangible supports. Pt identified steps to achieve this by being assertive and asking for help on tasks. Pt seemed to benefit from identifying the type of support pt needs to work on improving. Pt recommended to continue IOP tx to reduce negative thinking patterns, increase self-compassion, and improve overall functioning. Narrative Note: []
--- NOTE | 2022-05-29 12:36 | PCM.BH.PN_ITS ---
Progress Note Progress Note: History of Present Illness/Interim History: [] The patient is a 26-year-old female who is seen in follow-up at the [facility] behavioral health IOP program where she is being treated for depression, anxiety and OCD. I last saw the patient over 3 weeks ago and at that time her Lexapro dose was increased to 30 mg p.o. daily to help with her above symptoms. The patient states that she decreased it back down to 20 mg p.o. daily at the advice of her current outpatient provider. The patient states that her mood is a little better since several weeks ago. She feels she is benefiting from the IOP program and learning valuable skills to deal with her mental health issues. She feels she has less depression and anxiety overall but her OCD is unchanged. The patient still states that she worries about anything and everything. She has low motivation and low energy levels. She is anhedonic and endorses hopelessness and worthlessness. She has intrusive thoughts often about bad things happening to her or people she loves and does checking rituals to help deal with these. The patient denies thoughts of , suicidal ideation, plan for suicide, homicidal ideation, hallucinations or delusions. The patient's labs including CBC were within normal limits and her TSH was normal. Her vitamin D is is a little low and we will possibly consider replacement. Current Psychiatric Medications: [] Lexapro 20 mg p.o. daily; Abilify 2 mg p.o. daily Mental Status Examination: [] The patient is a 26-year-old female who appears normal for stated age and is ambulatory with a normal gait. She is casually dressed and groomed with good hygiene. She wears glasses. She has no psychomotor agitation or retardation. Eye contact is good but at times the patient looks at the ground while talking. Speech is normal rate and rhythm and fluent with no pressure. Mood is depressed and anxious. Affect is constricted. Thought process is goal-directed and organized. Thought content: There is evidence of intrusive thoughts around bad things happening to the patient where though she knows with some checking rituals. There is no evidence of passive thoughts of , suicidal ideation, plan for suicide, homicidal ideation, hallucinations or delusions. Reality testing is intact. Judgment is intact. Insight is limited. Impulsivity is moderate. Diagnoses: [] 1. Major depressive disorder, recurrent, severe without psychosis 2. Obsessive-compulsive disorder 3. Generalized anxiety disorder 4. EMetophobia 5. Tourette's syndrome 6. Marijuana use disorder 7. Primary support and work issues Plan: [] The patient will continue the IOP program at [facility] as the structure, support, education and group therapy will hopefully prevent further worsening of the patient's symptoms which might require hospitalization. She felt safe during the interview and if it anytime she does not feel safe she will let us know or go to the emergency room. The patient refuses any medication changes despite the fact that she has significant symptoms. Disc ussed with the patient that 30 mg of Lexapro is an acceptable dose especially since OCD patients need to be treated with higher doses and for longer periods of time to see an improvement in symptoms. Sometimes it can take up to 12 weeks to notice an improvement in OCD with the increase in dose of the medication. In addition, psychiatrist often use medications that are not specifically FDA approved for many indications and this is the standard of care in psychiatry.
--- NOTE | 2022-05-30 10:05 | BH.SGPN.GN ---
Behaviors/Verbalizations/Mental Status: [] Eye contact is good. Motor activity is appropriate. Appearance is casual. Speech is Appropriate. Mood is anxious. Affect is congruent. Thoughts are linear and logical. No evidence of psychosis. Client Response/Progress/Benefit: [] Pt was an active participant in group discussions. Attentive during psychoeducation on Communication Styles (Passive, Passive-Aggressive, Aggressive, and Assertive). Participated during interactive discussion on obstacles to effective communication which included; assumptions, unmanaged emotions, minimizing symptoms, resentment, etc. Participated during interactive discussion on benefits to effective communication which included; getting needs met, increased trust, improved relationships, ability to better manage conflict, decreased stress, increased self-worth, and decreased anxiety. Pt was placed in small group and was engaged in identifying benefits and consequences of each communication style. Benefited from increased understanding of communication styles and the impact they have on mental wellness. Will continue in IOP to maintain safety, prevent decompensation, increase healthy coping, and improve functioning. Narrative Note: []
--- NOTE | 2022-05-30 15:25 | BH.MDN ---
Multi-Disciplinary Note - Note 30-min Individual Time Started:: 11:11 Date: 05/30/22 Purpose of session/treatment goals addressed:: To work on goal #2 of pt's treatment plan by discussing behavioral activation and goal setting. Eye Contact:: Good Motor Activity:: Appropriate Appearance:: Casual Speech:: Appropriate Mood:: Anxious, Dysthymic Affect:: Congruent Thoughts:: Linear, Logical, No evidence of hallucinations/delusions noted Staff Interventions:: thought challenging, motivational interviewing, psychoeducation on: - intrusive thinking and discussed the next chapter of the overcoming unwanted intrusive thoughts book., strengths perspective, goal setting - set a goal to talk with her mother about getting a gym membership. Client Response:: Pt responded well to session, open to meeting with therapist. Pt reports feeling a little off this morning, which pt shared is likely due to the number of people at [facility] [place] today. Large groups trigger anxiety and pt also had a foggy drive this morning. Pt expressed feeling proud of herself for getting to [facility] [place] today and not quitting despite wanting to. Discussed current symptoms and pt shared her lack of motivation and energy are her biggest issues right now. Pt reported she also wakes up in physical pain and is in pain all day because of her fibromyalgia. Pt shared she knows that exercise is the best thing to manage fibromyalgia, but pt has not been motivated. Discussed behavioral activation and why this works. Pt receptive to setting a goal to talk to her mother about joining the [employer] as a family. Pt wants to try swimming and she shared her mother and father also want to get into exercising again. Pt came up with a plan and will present this to her mother on Friday. Pt was also given homework on how to manage intrusive thinking from the overcoming unwanted intrusive thoughts book. Therapist reviewed it with pt and pt will review for homework. Risks/Concerns:: Pt denies any active suicidal ideations, plan, or intent as of 05/30/22. Pt is future oriented. Progress Toward Goals/Plan:: Pt is making progress on her tx goals AEB her report of less avoidance and more social exposure recently. Pt is learning a lot about her intrusive thoughts and how to manage these, but they continue to happen frequently. Pt reports her biggest issue right now is lack of motivation, physical pain, and lack of energy. Pt receptive to goal setting and pt wants to get back into exercising. Pt will continue IOP tx to improve daily functioning, improve motivation, and combat distortions. Time Stopped:: 11:43
--- NOTE | 2022-06-04 09:00 | BH.SGPN.GN ---
Behaviors/Verbalizations/Mental Status: []Pt alert and oriented, casually dressed and groomed. Eye contact fair. Motor activity appropriate. Speech within normal limits. Affect constricted, mood anxious. Thoughts linear, logical, no signs of hallucinations or delusions. Reviewed pt?s symptom tracker, no risk for suicidal ideation, plan, or intent as of 06/04/22 Client Response/Progress/Benefit: [] Pt responded somewhat well to session, reported wanting to be quiet but challenged herself to share. Pt reported feeling reserved this morning as pt has been struggling with anxious thoughts. Pt recognizes that when she is anxious she tends with withdraw and ruminate, which increases her anxiety. Pt stated coming to IOP tx today is a big win as pt wanted to cancel and isolate. Pt also gave herself credit for communicating a boundary with her friend. Pt appeared to benefit from reflecting on her use of coping skills today. Pt will continue IOP tx to increase self-confidence in skills use, reduce negative thinking, and improve daily functioning. Narrative Note: []
--- NOTE | 2022-06-04 13:41 | BH.MDN_ITS ---
Multi-Disciplinary Note - Note 30-min Individual Time Started:: 11:55 Date: 06/04/22 Purpose of session/treatment goals addressed:: To address current symptoms, stressors, and barriers pt is experiencing. Eye Contact:: Good Motor Activity:: Restless Appearance:: Casual Speech:: Soft Mood:: Anxious, Dysthymic Affect:: Constricted Thoughts:: Linear, No evidence of hallucinations/delusions noted Staff Interventions:: thought challenging, motivational interviewing, CBT techniques, strengths perspective, goal setting Client Response:: Pt responded well to session, open to meeting with therapist. Pt shared she did not talk with her mother yet about returning to the gym, but pt plans to do this today. Pt was smiling and shared about a boundary she recently set with a close friend. Pt stated she would not have been able to do this in the past, so pt is proud of herself for this. Pt is worried about what might happen next with her friend, but pt is still confident in her choice. Pt wants to address her fears of returning to work as pt continues to have financial stress. Pt did not get the job she applied for at the [employer]. Discussed options for work as well as services that could help such as [employer]. Pt was familiar with this, but had never applied or looked into it further. Pt set a goal to call [employer] with her mother before the end of the week. Pt has high anxiety about phone calls, so she wants her mother there for support. Pt encouraged to continue working on thought challenging and increasing self-care. Risks/Concerns:: Pt denies any active suicidal ideations, plan, or intent as of 06/04/22. Progress Toward Goals/Plan:: Pt is making progress on her tx goals AEB her self- report of applying coping skills outside of IOP tx and setting boundaries. Pt continues to struggle with avoidance, negative self-talk, and lack of motivation. Pt is receptive to goal setting and thought challenging in session. Pt's functioning is improving, but pt still does not feel ready to return to the workforce. Pt given resources on [employer] (opportunities for [place] with disabilities). Pt will continue IOP tx to promote mood stability, increase application of healthy coping skills, and reduce negative thinking. Time Stopped:: 12:20
--- NOTE | 2022-06-06 09:00 | BH.SGPN.GN ---
Behaviors/Verbalizations/Mental Status: [] Eye contact is poor. Motor activity is appropriate. Appearance is disheveled. Speech is Appropriate. Mood is depressed. Affect is flat. Thoughts are linear and logical. No evidence of psychosis. Reviewed daily check in sheet and no reports of suicidal ideations or intent. Client Response/Progress/Benefit: [] Pt participated when prompted. Attentive at times however head down and looking at the ground majority of group. Daily symptom tracker notes 3/5 for depression and 2/5 for anxiety/irritability. These scores are identical to earlier this week. Emotion for today is ?off?. Mental health win was ?getting here today?. Shared that she typically ?quits things before she should? and has been having the urge to quit IOP. Utilized oppositive action to get here today. Group praised her for following through with IOP today. She continues to feel depression and stuck and isn?t sure that she is making progress. Will continue in IOP to maintain safety, increase healthy coping, and to improve functioning. Narrative Note: []
--- NOTE | 2022-06-06 10:10 | BH.SGPN.GN ---
Behaviors/Verbalizations/Mental Status: [] Client alert and oriented, casually dressed and groomed. Eye contact good. Motor activity appropriate. Speech within normal limits. Affect congruent, mood depressed. Thoughts linear, logical, no signs of hallucinations or delusions Client Response/Progress/Benefit: [] Client responded well to session AEB sharing and listening attentively to others. Client was engaged throughout group discussion defining fixed mindset and what it can look like. Group identified several aspects of fixed mindset which included; negative outlook, fear of failing, absolute thinking, and inability to grow your intelligence. Group discussed how fixed mindset affects mental health and why we use fixed thoughts. Client participated in experiential activity encouraging client to find solutions to a seemingly impossible task. Client identified personal fixed thoughts in session which included ?I'm not good at math, so I'll never be smart and I struggle with social situations so I'll never make friends.? Client gained insight to how these fixed thoughts reduce motivation and keep client stuck in unhealthy cycles. Client appeared to benefit from increased knowledge of fixed mindset and self-awareness of personal fixed thoughts. Will continue IOP treatment to implement more self care, increase self worth, and increase overall functioning. Narrative Note: [] Behaviors/Verbalizations/Mental Status: [] Client alert and oriented, casually dressed and groomed. Eye contact good. Motor activity appropriate. Speech within normal limits. Affect congruent, mood depressed. Thoughts linear, logical, no signs of hallucinations or delusions Client Response/Progress/Benefit: [] Client responded well to session AEB sharing and listening attentively to others. Client was engaged throughout group discussion defining fixed mindset and what it can look like. Group identified several aspects of fixed mindset which included; negative outlook, fear of failing, absolute thinking, and inability to grow your intelligence. Group discussed how fixed mindset affects mental health and why we use fixed thoughts. Client participated in experiential activity encouraging client to find solutions to a seemingly impossible task. Client identified personal fixed thoughts in session which included ?I'm not good at math, so I'll never be smart and I struggle with social situations so I'll never make friends.? Client gained insight to how these fixed thoughts reduce motivation and keep client stuck in unhealthy cycles. Client appeared to benefit from increased knowledge of fixed mindset and self-awareness of personal fixed thoughts. Will continue IOP treatment to implement more self care, increase self worth, and increase overall functioning. Narrative Note: []
--- NOTE | 2022-06-06 11:10 | BH.SGPN.GN ---
Behaviors/Verbalizations/Mental Status: [] Client alert and oriented, casually dressed and groomed. Eye contact good. Motor activity appropriate. Speech within normal limits. Affect congruent, mood euthymic. Thoughts linear, logical, no signs of hallucinations or delusions. Client Response/Progress/Benefit: [ ] Client engaged during activity and discussion AEB providing some input, connecting with peers, as well as taking notes throughout. Client did well to engage as group worked on identifying characteristics and benefits of adopting a growth mindset. Worked with fellow participants in reframing the example fixed thoughts into growth mindset thoughts. Reframed personal fixed thought of ?I'm not good at math so I'll never be smart? with growth mindset thought of ?I'm smart, just not great at math yet.? Benefitted from discussing benefits of growth mindset and brainstorming strategies for prompting growth-mindset. Will continue IOP tx to increase self care and increase overall functioning. Narrative Note: []
--- NOTE | 2022-06-11 09:05 | BH.SGPN.GN ---
Behaviors/Verbalizations/Mental Status: [] Eye contact is good. Motor activity is appropriate. Appearance is casual. Speech is Appropriate. Mood is depressed. Affect is flat. Thoughts are linear and logical. No evidence of psychosis. Reviewed daily check in sheet and no reports of suicidal ideations or intent. Client Response/Progress/Benefit: [] Pt participated at times during the group discussion. Daily symptom tracker notes 09/01 for anxiety, depression, and anger. Attentive. ?I?m not really motivated this morning?. She was able to identify a very significant mental health win which was setting boundaries with friends. She was originally planning on just ?burning the friendship? however took some feedback from recent group and approached the friend, communicated assertively, and ?everything went well?. She shared some stressors as well. Emotion for today is ?content?. Benefited from group support, encouragement, and feedback. Will continue in IOP to prevent decompensation, increase healthy coping, and maintain safety. Narrative Note: []
--- NOTE | 2022-06-11 11:18 | BH.SGPN.GN ---
Behaviors/Verbalizations/Mental Status: []Client alert and oriented, casually dressed and groomed. Eye contact good. Motor activity appropriate. Speech within normal limits. Affect congruent, mood anxious, euthymic. Thoughts linear, logical, no signs of hallucinations or delusions. Client Response/Progress/Benefit: []Client responded well to session AEB listening attentively to peers and providing input when prompted. Client engaged and providing insight during psychoeducation on the different boundary styles. Noted she struggles with porous boundaries with her friends and family. Client worked in a small group to identify strategies for healthy boundary setting. Client identified wanting to work on starting small with easy boundary setting goals and building off of those as she continues to make progress. Progress noted in self-report of consistent use of opposite action to continue to remain engaged in IOP tx. Will continue IOP tx to prevent decompensation, continue to improve overall functioning, and promote continued application of healthy coping skills. Narrative Note: []
--- NOTE | 2022-06-11 14:24 | BH.MDN ---
Multi-Disciplinary Note - Note 30-min Individual Time Started:: 10:35 Date: 06/11/22 Purpose of session/treatment goals addressed:: To review progress made in [facility], challenge distortions, and process current stressors. Another goal was to discuss the pros and cons of boundary setting. Eye Contact:: Good Motor Activity:: Appropriate Appearance:: Casual Speech:: Appropriate Mood:: Anxious Affect:: Congruent - tearful Thoughts:: Other - experiencing some fogginess per her report., No evidence of hallucinations/delusions noted Staff Interventions:: thought challenging, motivational interviewing, strengths perspective, other - reviewed pros and cons of boundary setting as well as boundary setting skills. Client Response:: Pt responded well to session, open to meeting with therapist. Pt reports she is ready to discharge from [facility] this week even though she is anxious. Pt shared she did not think she would complete the program as pt self-reports history of not following through with things. Pt reports that there are still things she wants to make progress on, like returning to the workforce, but pt has taken steps in getting back to this level of functioning. Pt became tearful and shared she wants to process a boundary she has been feeling torn about. Pt recognizes she needs to set a boundary with with on her friends, but the guilt and worry she feels is preventing pt from following through. Pt appeared to benefit from processing the conflicted emotions she is experiences as well as thought challenging. Pt picked one boundary she wants to set with this friend and pt feels confident in communicating this to her friend. Pt also reviewed the pros and cons of boundary setting and reminded herself why boundaries are needed. Risks/Concerns:: Pt denies any suicidal ideations, plan, or intent as of 06/11/22. Pt denies any thoughts of . Progress Toward Goals/Plan:: Pt is tearful today due to needing to set a boundary, but overall her mood and functioning are better compared to admission. Pt's DSM-5 scores for anxiety, depression, and OCD have decreased since admission. Pt also self-reports progress in communicating needs and advocating for herself. Pt recognizes she can benefit from ongoing counseling to further decrease symptoms. Pt will discharge from [facility] tx on 06/13/22 and can benefit from one more session to reinforce healthy coping skills. Time Stopped:: 11:11
--- NOTE | 2022-06-12 15:10 | BH.AFTERPLAN ---
Aftercare Plan - Demographics Treatment End Date:: 06/13/22 Psychiatrist:: Judie Espinosa Psychiatrist Office #:: [phone] [facility]/IOP Therapist:: Courtney Ames Therapist Phone #:: [phone] - Plan Details Progress/Aftercare Plan Details:: Leah has responded well to treatment as evidenced by Leah consistently attending IOP sessions and her reduction of DSM-5 scores since admission. Leah always attentive and receptive to learning during group and individual sessions. Leah reports overall her mood is improved, and she is functioning better than she was several months ago. Leah's overall symptom reduction is 28% since admission with anxiety reducing by 33%, OCD decreasing by 17%, anger decreasing by 33%, and depression decreasing by 38%. Leah has gained confidence in setting boundaries and increased her ability to manage her stress, triggers, and negative thinking. Strategies for Success:: 1. Opposite action! Continue to break that cycle of anxiety and depression by doing the opposite of what your emotion or irrational thinking wants you to do 2. Remember that thoughts are thoughts NOT facts! You have power in if you give thoughts the time of day or not. 3. self-care! You deserve to take time for you and you also deserve to face the not so fun self-care 4. Self-compassion! You are human and you will make a mistake?BUT that doesn?t mean you are a failure or not good enough. Give yourself credit for all the wonderful things you do. 5. move around and hydrate 6. Practice deep breathing, calming self-talk, and grounding 7. Practice positive self-talk and keep track of your wins. 8. Remember progress isn?t linear! You may have a setback or bump in the road, but that doesn?t mean you?ve lost all progress. Review your IOP binder when needed. 9. self-reflect to help understand what your body needs vs what your emotions want you to do. taking a break vs isolating or avoiding 10. Live in the rodas!! - Appointments Appointments/Referrals to Other Services:: 1. Continue with weekly appointments with Kay. 2. Mehnaz Peace for medication management - Medications Home Medications: Home Medications allopurinol 100 mg tablet 200 mg PO DAILY 05/01/22 aripiprazole 2 mg tablet (Abilify) 2 mg PO DAILY 05/01/22 cetirizine 10 mg tablet (Zyrtec) 10 mg PO DAILY 05/01/22 escitalopram oxalate 20 mg tablet (Lexapro) 20 mg PO DAILY 30 days #30 tabs 05/01/22 famotidine 40 mg tablet 40 mg PO DAILY 05/01/22
--- NOTE | 2022-06-13 09:00 | BH.SGPN.GN ---
Behaviors/Verbalizations/Mental Status: []Pt alert and oriented, neatly dressed and groomed. Eye contact fair. Motor activity appropriate. Speech within normal limits. Affect constricted, mood anxious. Thoughts linear, logical, no signs of hallucinations or delusions. Reviewed pt?s symptom tracker, no risk for suicidal ideation, plan, or intent as of 06/13/22 Client Response/Progress/Benefit: [] Pt responded well to session, quiet at first, but then opening up more in group. Pt reports feeling concerned and uneasy this morning as pt is anxious about leaving IOP tx. Pt shared she is proud of herself though for completing IOP as pt disclosed I have trouble following through and completing things. Pt reflected on her progress while in IOP and pt feels she is better with setting boundaries and challenging her perspective. Pt is still worried about her future, but pt recognizes she has more skills to cope now. Pt appeared to benefit from reflecting on her growth. Pt will discharge from IOP tx today as she has accomplished her tx goals and no longer meets criteria for IOP level of care. Narrative Note: []
--- NOTE | 2022-06-13 10:10 | BH.SGPN.GN ---
Behaviors/Verbalizations/Mental Status: []Pt alert and oriented, casually dressed and appropriately groomed. Eye contact good. Motor activity appropriate. Speech within normal limits. Affect congruent, mood euthymic. Thoughts linear, logical, no signs of hallucinations or delusions. Client Response/Progress/Benefit: []Pt was an engaged participant AEB providing input, listening to others, and taking notes. Participated in interactive group discussion on internal and external barriers to mental health progress. Pt described current reality as feeling like life is still chaotic at times but now has more positives in her life compared to several weeks ago. Reported desired reality is to feel more stable, have a job in her field of study, and be able to enjoy herself. Client shared personal barriers to desired realty include: fear of embarrassment, fear of rejection, unhealthy coping skills, and procrastination. Benefited from increased awareness of current barriers to progress as well as current/desired realities. Pt has made treatment progress and will discharge from [facility] today.
--- NOTE | 2022-06-13 13:20 | BH.DS ---
Discharge Summary - Demographics Date of Admission:: 04/29/22 Discharge Date: 06/13/22 Presenting Problems at Admission:: Pt is a 26-year-old female with a history of depression, OCD, and anxiety. Pt was referred to [facility] by her outpatient providers due to worsening symptoms and suicidal ideations. At admission, pt reported she is scared of everything and she is anxiety 17/02. Pt's symptoms are currently impacting her ability to maintain employment and concentrate. Pt reported feeling worried constantly that she will get fired and that she asks too many questions. Pt also endorsed a depressed mood, worthlessness, lack of motivation, crying spells, and lack of energy. Pt's symptoms were also impacting her relationships and quality of life. Discharge Diagnoses:: Major depressive disorder, recurrent, severe without psychosis F 33.2; Obsessive-compulsive disorder; Generalized anxiety disorder; Emetophobia; Tourette's syndrome; Marijuana use disorder Reason for Discharge:: Pt has met her tx goals AEB her reduction in overall DSM-5 scores by 28% since admission and her self-report of improved mood and functioning. Pt will continue with outpatient counseling and psychiatry. - Treatment Progress During Treatment & Response: Pt has responded well to treatment as evidenced by Pt consistently attending IOP sessions and her reduction of DSM-5 scores since admission. Pt always attentive and receptive to learning during group and individual sessions. Pt reports overall her mood is improved, and she is functioning better than she was several months ago. Pt's overall symptom reduction is 28% since admission with anxiety reducing by 33%, OCD decreasing by 17%, anger decreasing by 33%, and depression decreasing by 38%. Pt has gained confidence in setting boundaries and increased her ability to manage her stress, triggers, and negative thinking. Issues Still to be Addressed:: Pt can benefit from ongoing counseling to reinforce healthy coping skills, combat negative thinking patterns, increase self-care and boundary setting, and improve self-confidence. Pt also wants to return to the workforce, but her anxiety is still a barrier. Pt encouraged to reach out to OD. Discharge Recommendations/Instructions:: Pt will continue with individual counseling and medication management at [place] [id number]. Pt sees Kay for individual counseling weekly and will see her next week on 06/17/22. Pt also sees Mehnaz Peace for medication management and pt has an appointment with her in June. Pt offered to join [facility] aftercare, but pt will not be participating. Discharge Handout: Complete Discharge Handout with client on aftercare options and continuity of care.
== END 2022-06-13 12:27 | disposition home or self-care (01) ==
LOC: BHIOP 08:09
PROVIDERS: Referring Provider Psychiatry & Neurology Psychiatry; Visit Provider Psychiatry & Neurology Psychiatry
DX: F33.2 Major depressive disorder, recurrent severe without psychotic features (principal); F42.9 Obsessive-compulsive disorder, unspecified; F41.1 Generalized anxiety disorder; F95.2 Tourette's disorder; F12.90 Cannabis use, unspecified, uncomplicated
CPT/HCPCS: S9480; 90832; 90834; 90853